=== PATIENT | male | born 1990 | race Two or more races ===

== ENCOUNTER 2016-12-17 00:29 | Emergency (ER) | payer OTHER ==
[2016-12-17] MEDS ORDERED: IBUPROFEN 600 MG TAB PO ONE ×2 (00:56→00:58)
[2016-12-17] MEDS ORDERED: HYDROCODONE/APAP 5/325 TAB ONE (00:57)
[2016-12-17] MEDS ORDERED: PENICILLIN VK 250 MG TAB ONE (00:57)
[2016-12-17] MEDS ORDERED: HYDROCOD/APAP 5/325 PREPACK#6 BTL TAKEHOME ONE (00:58)
[2016-12-17] MEDS ORDERED: HYDROCODONE/APAP 5/325 TAB PO ONE (00:58)
[2016-12-17] MEDS ORDERED: PENICILLIN VK 500 MG TAB PO ONE (00:58)
--- NOTE | 2016-12-17 01:03 | EDPHY ---
H & P Time Seen by Provider: 12/17/16 00:57 HPI/ROS: HPI Dental pain. 26-year-old male by private vehicle with his . This patient reports onset of right lower dental pain since a p.m.. He took 200 mg of ibuprofen. He had no relief in this pain. He does not currently have a dentist. He has a history of dental caries. No fever. ROS: Constitutional: No fever, no chills. No weakness. ENT: No sore throat. No nasal congestion or rhinorrhea. As above. Respiratory: No cough. No shortness of breath. Musculoskeletal: No neck pain. No myalgias or arthralgias. Skin: No rashes. No facial swelling. Neurological: No headache. Past medical history: He denies any significant past medical history. [facility]. Social history: Nonsmoker. [place]er-speaking only. Here with his . Physical Exam: General Appearance: Alert, no distress. This patient is responding to questions appropriately and in full sentences. This patient appears well- hydrated and well-nourished. Eyes: Pupils equal and round no pallor or injection. No lid edema, erythema or injection. ENT, Mouth: Mucous membranes are moist. The pharyngeal tissues are unremarkable. No edema or swelling. No asymmetry suggestive of abscess. No erythema or exudates. He has an impacted and decayed right lower 3rd molar/ wisdom tooth. There is tenderness on apical compression of the tooth. There is no significant victor hugo gingival swelling. No swelling of the buccal mucosa. No facial swelling, erythema or warmth. No voice changes. No stridor on auscultation of his neck. Neurological: Motor sensory function is grossly intact. Cranial nerves are normal. Gait is normal. Skin: Warm and dry, no rashes. Musculoskeletal: Neck is supple and nontender. No cervical lymphadenopathy. Extremities are symmetrical. All joints range without pain or impingement. Psychiatric: No agitation. No depression. Database: EKG: Imaging: Procedures: Emergency department course: Vital signs reviewed. Patient evaluated with health advisor. Patient given 500 mg of oral penicillin. He was given 2 [place] tablets and 600 mg of ibuprofen. Plan will be to put him on these medications from the emergency department and have him follow up at [facility] aide tomorrow as a walk-in to their clinic. He understands his follow-up. He understands his medication dosing. Return to emergency department precautions reviewed with him. All of his questions were answered. He was discharged in good condition. Differential Diagnosis: The differential diagnosis on this patient includes but is not limited to dental tom, impacted wisdom tooth, dental abscess. Sepsis, airway impingement , significant facial cellulitis, unlikely. This represents a partial list of diagnoses considered. These considerations are based on history, physical exam , past history, reassessment and diagnostic testing. Smoking Status: Former smoker Constitutional: Initial Vital Signs Temperature (C) 36.4 C 12/17/16 00:31 Heart Rate 63 12/17/16 00:31 Respiratory Rate 18 12/17/16 00:31 Blood Pressure 142/77 H 12/17/16 00:31 O2 Sat (%) 94 12/17/16 00:31 O2 Delivery Mode Room Air Allergies/Adverse Reactions: No Known Allergies Allergy (Verified 12/17/16 00:34) Home Medications: Medication Instructions Recorded Hydrocodone/APAP 5/325 [[place] 1 - 2 tab PO Q4-6PRN PRN #14 tab 12/17/16 5/325 (*)] Penicillin V Potassium [Penicillin 500 mg PO QID #28 tablet 12/17/16 VK] Departure - Departure Disposition: Home, Routine, Self-Care Clinical Impression: Impacted third molar tooth, Dental caries Condition: Good Instructions: Toothache (ED), Dental Caries (ED) Additional Instructions: Read and follow provided instructions. Follow-up with dental aide, tomorrow, they have a walk-in clinic you can go to in the morning. Take antibiotic as prescribed through entire course of treatment. Ibuprofen dosin mg every 6 hours with meals for the next 3 days only. [place]/Percocet dosin-2 every 4-[address] not drive on this medication. Return to the emergency department for worsening symptoms, fever, facial swelling, uncontrolled pain or other serious concerns. Referrals: Adriana Mai PA [Primary Care Provider] - As per Instructions [facility] [Outside] - As per Instructions Prescriptions: Hydrocodone/APAP 5/325 [[place] 5/325 (*)] 1 - 2 tab PO Q4-6PRN PRN #14 tab PRN Reason: Pain, Moderate Penicillin V Potassium [Penicillin VK] 500 mg PO QID #28 tablet
[2016-12-17 01:15] VITALS: BP 135/81; PULSE 65; RESP 20; TEMP 98.1; O2SAT 96
== END 2016-12-17 01:15 | disposition home or self-care (01) ==
DX: K01.1 Impacted teeth (principal); K02.9 Dental caries, unspecified; Z87.891 Personal history of nicotine dependence

== ENCOUNTER 2017-09-09 01:05 | Emergency (ER) | payer OTHER ==
[2017-09-09 01:09] VITALS: BP 124/72; RESP 16; TEMP 97.7
--- NOTE | 2017-09-09 02:08 | EDPHY ---
H & P Stated Complaint: left sided tooth pain x1 week Time Seen by Provider: 09/09/17 01:50 HPI/ROS: History is obtained using Comoran language line translator/interpreter. HPI The patient presents with left-sided lower molar pain which has been present for the last 1 week. It has been intermittent and but it began a week ago he took [place] and penicillin which he was prescribed from [facility] about 1 month ago for his tooth pain. Tonight, when his pain returned, he took these medicines again, however they did not alleviate his pain, so he comes into the emergency department. He does not have any fevers or chills, he has no difficulty swallowing or opening his mouth. When he went to [facility], he was told that he needs orthodontics, however he does not have the money for that right now and he is saving up.. REVIEW OF SYSTEMS Constitutional: No fever, no chills. Skin: No rashes. Neurological: No headache. PMHx: Healthy PHYSICAL General Appearance: Alert, no distress Eyes: Pupils equal and round no pallor or injection ENT, Mouth: Mucous membranes moist, he has tenderness along the buccal and lingual gum lines of the lower left molars and premolars, no abscess is present Respiratory: Breathing comfortably Neurological: A&O, moves all extremities Skin: Warm and dry, no rashes Musculoskeletal: Neck is supple non tender, no lymphadenopathy Extremities: symmetrical, full range of motion Psychiatric: Patient is oriented X 3, there is no agitation Source: Patient Exam Limitations: No limitations - Medical/Surgical History Hx Asthma: No Hx Chronic Respiratory Disease: No Hx Diabetes: No Hx Cardiac Disease: No Hx Renal Disease: No Hx Cirrhosis: No Hx Alcoholism: No Hx HIV/AIDS: No Hx Splenectomy or Spleen Trauma: No Other PMH: none - Social History Smoking Status: Former smoker Constitutional: Initial Vital Signs Temperature (C) 36.5 C 09/09/17 01:06 Heart Rate 70 09/09/17 01:06 Respiratory Rate 16 09/09/17 01:06 Blood Pressure 124/72 H 09/09/17 01:06 O2 Sat (%) 94 09/09/17 01:06 O2 Delivery Mode Room Air Allergies/Adverse Reactions: No Known Allergies Allergy (Verified 09/09/17 01:09) Home Medications: Medication Instructions Recorded Hydrocodone/APAP 5/325 [[place] 1 - 2 tab PO Q4-6PRN PRN #14 tab 12/17/16 5/325 (*)] Penicillin V Potassium [Penicillin 500 mg PO QID #28 tablet 12/17/16 VK] Hydrocodone/APAP 5/325 [[place] 1 - 2 tab PO Q6H PRN #15 tab 09/09/17 5/325 (*)] Medical Decision Making Differential Diagnosis: 27-year-old male, presenting with dental pain involving the left lower molars and premolars. This is been present intermittently for about 1 month. He sought [facility] at the onset of his pain and was told he needed orthodontics. He is saving his money for these now. His pain has recurred tonight and has not improved with 1 [place] and penicillin that he took. On exam, he does not appear to have any overt dental abscess. He could be suffering from pulpitis related to his dentition. I do not suspect any mandibular osteomyelitis. I have explained that he can take 2 [place] every 6 hours as needed for pain and needs to take the penicillin continuously. I have advised that he follow up with [facility] for repeat check. I have offered him a dental block and he agrees to proceed. I used 5 mg of bupivacaine 0.5% to perform an inferior alveolar nerve block with a 27 gauge needle with good result. He will be discharged home. - Data Points Medications Given: Discontinued Medications Ibuprofen (Motrin) 600 mg PO EDNOW ONE Stop: 09/09/17 02:12 Last Admin: 09/09/17 02:23 Dose: 600 mg Departure - Departure Disposition: Home, Routine, Self-Care Clinical Impression: Pulpitis Condition: Good Instructions: Toothache (ED) Additional Instructions: Please follow-up with [facility] in 1-2 days. Referrals: [facility] [Outside] - As per Instructions Prescriptions: Hydrocodone/APAP 5/325 [[place] 5/325 (*)] 1 - 2 tab PO Q6H PRN #15 tab PRN Reason: Pain, Breakthrough
[2017-09-09] MEDS ORDERED: IBUPROFEN 600 MG TAB PO ONE (02:11)
[2017-09-09 02:25] VITALS: PULSE 69; O2SAT 95
== END 2017-09-09 02:51 | disposition home or self-care (01) ==
DX: K04.01 Reversible pulpitis (principal); Z87.891 Personal history of nicotine dependence

== ENCOUNTER 2019-01-07 23:01 | Emergency (ER) | payer SELFPAY ==
[2019-01-07] MEDS ORDERED: PENICILLIN VK 250MG PREPACK#6 BTL TAKEHOME ONE (23:58)
[2019-01-07] MEDS ORDERED: PENICILLIN VK 500 MG TAB PO ONE (23:58)
[2019-01-07] MEDS ORDERED: HYDROCOD/APAP 5/325 PREPACK#6 BTL TAKEHOME ONE (23:58)
[2019-01-07] MEDS ORDERED: HYDROCODONE/APAP 5/325 TAB PO ONE (23:58)
--- NOTE | 2019-01-08 00:03 | EDPHY ---
H & P Stated Complaint: R facial/jaw pain, teeth Time Seen by Provider: 01/07/19 23:20 HPI/ROS: History obtained using German video modeling and simulation analyst. HPI The patient presents with right-sided lower tooth pain which has been present since this morning when he was eating and felt the pain and was concerned that he chipped his tooth. He has ongoing pain which is sharp and achy and radiates throughout his jaw and ear. He is followed by a dentist at [facility] [place]. He has not had a chance to see them yet. He took a dose of Tylenol with minimal improvement in his symptoms. He does not have any neck pain or swelling. Of note, he does complain that he has left breast swelling for the last several months which has not been evaluated. He is not taking any hormone therapy or other medications. He does not have any nipple discharge.. REVIEW OF SYSTEMS 10 systems were reviewed and negative with the exception of the elements mentioned in the history of present illness. PMHx: Healthy Soc Hx: Nonsmoker PHYSICAL General Appearance: Alert, no distress Eyes: Pupils equal and round no pallor or injection ENT, Mouth: Mucous membranes moist, right lower premolar has signs of decay, tender to palpation, mild tenderness along the gum line without any areas of fluctuance Respiratory: There are no retractions, lungs are clear to auscultation Cardiovascular: Regular rate and rhythm Gastrointestinal: Abdomen is soft and non-tender, no masses, bowel sounds normal Neurological: A&O, moves all extremities Skin: Warm and dry, left breast is asymmetrically larger than right, there is no breast tenderness, there is no focal mass, there is no overlying skin change Musculoskeletal: Neck is supple non tender Extremities: symmetrical, full range of motion Psychiatric: Patient is oriented X 3, there is no agitation Source: Patient Exam Limitations: No limitations - Personal History Current Tetanus Diphtheria and Acellular Pertussis (TDAP): Unsure - Medical/Surgical History Hx Asthma: No Hx Chronic Respiratory Disease: No Hx Diabetes: No Hx Cardiac Disease: No Hx Renal Disease: No Hx Cirrhosis: No Hx Alcoholism: No Hx HIV/AIDS: No Hx Splenectomy or Spleen Trauma: No Other PMH: none - Social History Smoking Status: Former smoker Constitutional: Initial Vital Signs Temperature (C) 37.0 C 01/07/19 23:02 Heart Rate 68 01/07/19 23:02 Respiratory Rate 16 01/07/19 23:02 Blood Pressure 125/64 H 01/07/19 23:02 O2 Sat (%) 95 01/07/19 23:02 O2 Delivery Mode Room Air Allergies/Adverse Reactions: No Known Allergies Allergy (Verified 01/07/19 23:02) Home Medications: Medication Instructions Recorded Hydrocodone/APAP 5/325 [[place] 1 - 2 tab PO Q4-6PRN PRN #14 tab 12/17/16 5/325 (*)] Penicillin V Potassium [Penicillin 500 mg PO QID #28 tablet 12/17/16 VK] Hydrocodone/APAP 5/325 [[place] 1 - 2 tab PO Q6H PRN #15 tab 09/09/17 5/325 (*)] Penicillin V Potassium [Penicillin 500 mg PO BID #14 tab 01/08/19 VK] Medical Decision Making Differential Diagnosis: 28-year-old male with tooth pain for the last 1 day after biting down on the tooth. I do not see any signs of avulsion. He likely has a mild dental infection and for this I will treat with penicillin as well as medication for pain. He has a dentist currently in I explained that he will need follow-up within the next few days. He does appear to have gynecomastia of his left breast which has been present for several months now. I have referred him to Dr. Peña for this and have explained that he will likely need an ultrasound. - Data Points Medications Given: Discontinued Medications Hydrocodone Bitart/Acetaminophen ([place] 5/325mg Prepack#6) 1 btl TAKEHOME EDNOW ONE Stop: 01/07/19 23:59 Last Admin: 01/08/19 00:04 Dose: 1 btl Hydrocodone Bitart/Acetaminophen ([place] 5/325) 2 tab PO EDNOW ONE Stop: 01/07/19 23:59 Last Admin: 01/08/19 00:04 Dose: 2 tab Penicillin V Potassium (Pen Vk) 500 mg PO EDNOW ONE PRN Reason: Protocol Stop: 01/07/19 23:59 Last Admin: 01/08/19 00:04 Dose: 500 mg Penicillin V Potassium (Pen Vk 250 Mg Prepack#6) 1 btl TAKEHOME EDNOW ONE PRN Reason: Protocol Stop: 01/07/19 23:59 Last Admin: 01/08/19 00:05 Dose: 1 btl Departure - Departure Disposition: Home, Routine, Self-Care Clinical Impression: Toothache, Breast swelling Condition: Good Instructions: Hydrocodone/Acetaminophen (By mouth), Toothache (ED), Breast Mass (ED) Additional Instructions: You will need to follow up with your dentist in the next 1-2 days. I recommend that [facility] or [facility]. Peña for the swelling of your left breast. You will need to have an ultrasound ordered by a doctor for you. Deber realizar un seguimiento con haji dentista en los prximos 1 o 2 yanez. Le recomiendo que gamal un seguimiento con la [facility] de personas o con el Dr. Peña para la hinchazn de haji seno jose. Necesitar un ultrasonido ordenado por un mdico para usted. Referrals: [facility],. [Clinic] - As per Instructions Yaz Peña MD [Medical Doctor] - As per Instructions Prescriptions: Penicillin V Potassium [Penicillin VK] 500 mg PO BID #14 tab Print Language: German
[2019-01-08 00:33] VITALS: BP 144/74
== END 2019-01-08 00:32 | disposition home or self-care (01) ==
DX: K08.89 Other specified disorders of teeth and supporting structures (principal); N64.89 Other specified disorders of breast

== ENCOUNTER 2019-01-15 20:11 | Emergency (ER) | payer OTHER ==
[2019-01-15 20:17] VITALS: BP 137/84
--- NOTE | 2019-01-15 20:38 | EDPHY ---
General Time Seen by Provider: 01/15/19 20:24 Narrative: CLINICAL IMPRESSION: Dentalgia, probable periapical abscess ASSESSMENT/PLAN: 28-year-old Albanian-speaking only male presents to the emergency department 24 hr of right lower atraumatic dental pain. Patient has what appears to be an obvious cavity with probable secondary periapical abscess. No evidence of gingival buccal abscess, ANUG, facial cellulitis, Kunal's angina, or facial abscess. Patient was started on penicillin and given a small amount of oral analgesics. He was given the number for dental aid as well as [facility]. Warning signs return to ED were outlined in person and with source inspector at bedside. DIFFERENTIAL DX: Differential includes but not limited to in no particular order, dental abscess , dentalgia, facial abscess, gingival buccal abscess, Kunal's angina CHIEF COMPLAINT: Dental pain HPI: 28-year-old Albanian-speaking only male presents to the emergency department 24 hr of right lower dental pain. Patient denies breaking the tooth or biting down on something hard. No recent dental evaluation. No reported fever or chills. He has been able to eat and drink. No neck swelling. No tongue swelling. He attempted to contact his primary care doctor today without luck. PAST MEDICAL HISTORY: None reported See triage summary and nurse notes for addition applicable history Pertinent Past Surgical History: None reported Family History: None reported Social History: Otherwise healthy REVIEW OF SYSTEMS: A full 10 point review of systems was negative except for those mentioned in HPI. PHYSICAL EXAM: General Appearance: Alert, oriented, appropriate, cooperative, NAD, well hydrated, non-toxic appearing, VSS, AFEBRILE, TOLERATING SECRETIONS, DISC RECORDIST AT BEDSIDE no hypoxia. HEENT: TMs are clear bilaterally no perforation or FB, no injection, no evidence of serous or mucopurulent otitis. Oropharynx clear is no erythema or exudates, no tonsillar hypertrophy or asymmetry. Dentition with dental caries present, no evidence of gingival buccal abscess, obvious cavity at right premolar which is the source of patient's pain. Floor of mouth soft. No evidence of Kunal's angina. Eyes: PERRLA, no acute vision change, nystagmus, swelling, discharge, pain or photosensitivity. Conjunctiva pink, no pallor or injection Neck: Supple, nontender, no lymphadenopathy, no midline pain, FROM, no meningismus. Skin: Warm, dry, no rashes, no nodules on palpation. MEDICAL DECISION MAKING: Patient was seen independently. Secondary supervising physician at time of evaluation was: Dr. Sandhu. Diagnosis: Dentalgia, probable periapical abscess. New, requires workup Summary: See Assessment and Plan for summary of ED visit Patient Progress: Stable for discharge. - History Smoking Status: Former smoker - Objective Vital Signs: Initial Vital Signs Temperature (C) 36.5 C 01/15/19 20:15 Heart Rate 61 01/15/19 20:15 Respiratory Rate 16 01/15/19 20:15 Blood Pressure 137/84 H 01/15/19 20:15 O2 Sat (%) 97 01/15/19 20:15 O2 Delivery Mode Room Air Allergies/Adverse Reactions: No Known Allergies Allergy (Verified 01/15/19 20:14) Home Medications: Medication Instructions Recorded Hydrocodone/APAP 5/325 [[place] 1 - 2 tab PO Q4H PRN #10 tab 01/15/19 5/325 (*)] Penicillin V Potassium [Penicillin 500 mg PO QID #28 tab 01/15/19 VK] Departure - Departure Disposition: Home, Routine, Self-Care Clinical Impression: Dentalgia, Periapical abscess Condition: Good Instructions: Toothache (ED) Additional Instructions: DISCHARGE INSTRUCTIONS FROM YOUR DOCTOR Thank you for visiting our emergency department today. You were treated by a physician licensed sales assistant today and your case was reviewed with our ED Attending physician. Please keep in mind that discharge from the emergency department does not mean that there is nothing wrong - it simply means that we have not identified an emergency condition that requires further evaluation or treatment in the hospital. You should always plan to follow up with primary care for re- evaluation of your condition in the next 2-3 days. If you have been referred to a specialist, please call as soon as possible (today or tomorrow) to schedule your follow up appointment at the appropriate time. PLEASE FOLLOW-UP WITH A DENTIST OR [facility] IN 1-2 DAYS. THE PHONE NUMBER FOR DENTAL AID IS [phone]. PLEASE TAKE ANTIBIOTICS DIRECTED. USE PAIN MEDICATION IF NEEDED. DO NOT DRIVE OR DRINK ALCOHOL WHILE TAKING NARCOTIC PAIN MEDICATION. PLEASE BE AWARE, NARCOTICS CAN CAUSE CONSTIPATION, LETHARGY, AND INCREASE YOUR RISK OF FALLING. DO NOT TAKE TYLENOL AT THE SAME TIME VICODIN OR PERCOCET. RETURN TO THE EMERGENCY DEPARTMENT FOR SEVERE PAIN , FACIAL SWELLING, TROUBLE SWALLOWING YOUR OWN SALIVA, NECK SWELLING OR ANY OTHER CONCERN. People present with illnesses and injuries in different ways, and it is always possible that we have missed something. You may always return for re-evaluation if symptoms worsen or if they are not improving or if you develop new/different symptoms. Again, thank you for choosing our emergency department. We hope that you feel better. INSTRUCCIONES DE DESCARGA DE RAIN MDICO Davidson por visitar nuestro departamento de emergencias millicent. Usted fue atendido por un asistente mdico millicent y rain sharmin fue revisado con nuestro mdico de urgencias. Tenga en cuenta que el sanju del departamento de emergencias no significa que no haya nada junior, simplemente significa que no hemos identificado danyelle condicin de emergencia que requiera danyelle evaluacin o tratamiento adicional en el hospital. Siempre debe planificar un seguimiento con atencin primaria para la reevaluacin de rain condicin en los prximos 2 a 3 yanez. Si sawyer sido referido a un especialista, llame lo antes posible (millicent o shan martinez) para programar rain rene de seguimiento en el momento adecuado. FAVOR DE SEGUIR CON LA CLNICA DE UN DENTISTA O DE LA GENTE EN 1-2 YANEZ. EL N SANTANA DE TELFONO PARA LA AYUDA DENTAL ES [phone]. TOME ANTIBIOTICOS SEGN LO DIRIGIDO. USE MEDICAMENTOS PARA EL DOLOR SI ES NECESARIO. NO CONDUZCA NI AYLIN ALCOHOL MIENTRAS KANDACE MEDICAMENTOS NARCTICOS PARA EL DOLOR. POR FAVOR TENGA EN CUENTA, LOS NARCTICOS PUEDEN CAUSAR LA CONSTIPACIN, LETRA Y AUMENTAR RAIN RIESGO DE CADAS. NO TOME TYLENOL AL MISMO TIEMPO QUE VICODIN O PERCOCET. VUELVA AL DEPARTAMENTO DE EMERGENCIA POR DOLOR MARIANNA, Hinchazn FACIAL, PROBLEMAS QUE INGIEREN RAIN PROPIA SALIVA, HOLLEGAS DEL REENA O CUALQUIER OTRA PREOCUPACIN. Las personas se presentan con enfermedades y lesiones de diferentes maneras, y siempre es posible que nos hayamos perdido algo. Siempre puede regresar para danyelle nueva evaluacin si los sntomas empeoran o si no mejoran o si presenta s ntomas nuevos o diferentes. Nuevamente, davidson por elegir nuestro departamento de emergencias. Esperamos que te sientas mejor. Referrals: Adriana Mai PA [Primary Care Provider] - 1-2 days without fail Prescriptions: Hydrocodone/APAP 5/325 [[place] 5/325 (*)] 1 - 2 tab PO Q4H PRN #10 tab PRN Reason: Pain, Moderate Penicillin V Potassium [Penicillin VK] 500 mg PO QID #28 tab
== END 2019-01-15 20:45 | disposition home or self-care (01) ==
DX: K08.89 Other specified disorders of teeth and supporting structures (principal); Z87.891 Personal history of nicotine dependence